=== PATIENT | male | born 1955 | race Two or more races ===

== ENCOUNTER 2022-03-29 10:08 | Emergency (ER) | payer OTHER ==
[~2022-03-29] VITALS: Ht 170.2 cm; Wt 81.6 kg
[2022-03-29] MEDS ORDERED: GLUMETZA1000 MG PO (10:43)
== END 2022-03-29 11:12 | disposition home or self-care (01) ==
LOC: ER 10:08
DX: E11.9 Type 2 diabetes mellitus without complications (principal); Z79.84 Long term (current) use of oral hypoglycemic drugs